=== PATIENT | male | born 1965 | race Caucasian/White ===

== ENCOUNTER 2017-08-23 11:34 | Day surgery (SDC) | payer BC ==
[~2017-08-23 11:34] MED LIST: Lactated Ringers 1,000 ML IV SCH
--- NOTE | 2017-08-23 12:30 | PCM.PREANE ---
Preanesthetic Assessment - Procedure Proposed Procedure: EGD/Colonoscopy - Anesthesia/Transfusion/Family Hx Anesthesia History: Prior Anesthesia Reaction Other Type of Anesthesia Reaction Comment: vaso-vagal, had bradycardia with last colonoscopy Family History of Anesthesia Reaction: No Transfusion History: No Prior Transfusion(s) Intubation History: Unknown - Review of Systems General: No Symptoms Pulmonary: Other (former smoker) Cardiovascular: No Symptoms Neurological: Other (recurrent neck pain) Other: Reports: Depression - Physical Assessment NPO Status Date: 08/22/17 NPO Status Time: 22:00 O2 Sat by Pulse Oximetry: 95 Respiratory Rate: 16 Vital Signs: Last Vital Signs Temp 99.0 F 08/23/17 11:45 Pulse 86 08/23/17 11:45 Resp 16 08/23/17 11:45 BP 119/82 08/23/17 11:45 Pulse Ox 95 08/23/17 11:45 Height: 5 ft 10 in Weight: 197 lb ASA Class: 2 Mental Status: Alert & Oriented x3 Airway Class: Mallampati = 1 Dentition: Reports: Normal Dentition Thyro-Mental Finger Breadths: 3 Mouth Opening Finger Breadths: 3 ROM/Head Extension: Limited/Partial Lungs: Clear to Auscultation, Normal Respiratory Effort Cardiovascular: Regular Rate, Regular Rhythm, No Murmurs - Allergies Allergies/Adverse Reactions: Allergies Allergy/AdvReac Type Severity Reaction Status Date / Time No Known Allergies Allergy Verified 08/21/17 11:11 - Blood Blood Available: No Product(s) Available: None - Anesthesia Plan Pre-Op Medication Ordered: None - Acknowledgements Anesthesia Type Planned: MAC Pt an Appropriate Candidate for the Planned Anesthesia: Yes Alternatives and Risks of Anesthesia Discussed w Pt/Guardian: Yes Pt/Guardian Understands and Agrees with Anesthesia Plan: Yes PreAnesthesia Questionnaire HEENT History: Reports: Hard of Hearing Other HEENT History: wears glasses Musculoskeletal History: Reports: Back Pain, Chronic, Fracture, Neck Pain, Chronic Other Musculoskeletal History: hx of fx ribs, sternum and hand Psychiatric History: Reports: Depression - Past Surgical History GI Surgical History: Reports: Colonoscopy Musculoskeletal Surgical History: Reports: ORIF Other Musculoskeletal Surgeries/Procedures:: Hx of ORIF of hand- hardware removed - SUBSTANCE USE Smoking Status *Q: Former Smoker Recreational Drug Use History: No - HOME MEDS Home Medications: Home Meds Cyclobenzaprine HCl 10 mg PO BEDTIME PRN 08/21/17 [History] Diclofenac Sodium [Voltaren] 75 mg PO BID PRN 08/21/17 [History] FLUoxetine [PROzac] 20 mg PO DAILY 08/21/17 [History] buPROPion HCl [Wellbutrin Xl] 150 mg PO DAILY 08/21/17 [History] - CURRENT (IN HOUSE) MEDS Current Meds: Current Medications Lactated Ringer's (Ringers, Lactated) 1,000 mls @ 125 mls/hr IV ASDIRECTED MAMIE
[2017-08-23] MEDS ORDERED: Lidocaine 2% 5 ML SDV ONE (13:16)
[2017-08-23] MEDS ORDERED: Propofol 200 MG/20 ML SDV ONE (13:16)
[2017-08-23] MEDS ORDERED: Midazolam 1 MG/ML 2 ML SDV ONE (13:17)
[2017-08-23] MEDS ORDERED: fentaNYL 100 MCG/2 ML SDV ONE (13:17)
--- NOTE | 2017-08-23 14:53 | PCM.OPNOTE ---
- General Post-Op/Procedure Note Date of Surgery/Procedure: 08/23/17 Operative Procedure(s): egd w bx. colonoscopy w bx Findings: see dict [id number] Pre Op Diagnosis: hx of colon polyp and gerd Post-Op Diagnosis: Same Anesthesia Technique: Moderate Sedation Primary Surgeon: Herb Zarate Pathology: egd bx 2 mm sessile polyp X 2, cold bx at icv Complications: None Condition: Good
--- NOTE | 2017-08-23 15:10 | PCM.POSTAN ---
POST ANESTHESIA ASSESSMENT - MENTAL STATUS Mental Status: Alert, Oriented - RESPIRATORY Respiratory Status: Respiratory Rate WNL, Airway Patent, O2 Saturation Stable - CARDIOVASCULAR CV Status: Pulse Rate WNL, Blood Pressure Stable - GASTROINTESTINAL GI Status: No Symptoms - POST OP HYDRATION Hydration Status: Adequate & Stable
--- NOTE | 2017-08-23 17:10 | PCM48HPAN ---
Post Anesthesia Note - EVALUATION WITHIN 48HRS OF ANESTHETIC Vital Signs in Normal Range: Yes Patient Participated in Evaluation: Yes Respiratory Function Stable: Yes Airway Patent: Yes Cardiovascular Function Stable: Yes Hydration Status Stable: Yes Pain Control Satisfactory: Yes Nausea and Vomiting Control Satisfactory: Yes Mental Status Recovered: Yes
--- NOTE | 2017-08-23 18:35 | OR ---
SURGEON: Herb Zarate MD DATE OF PROCEDURE: 08/23/2017 PREOPERATIVE DIAGNOSIS: Surveillance colonoscopy and acid reflux. POSTOPERATIVE DIAGNOSIS: Surveillance colonoscopy and acid reflux. PROCEDURE PERFORMED: 1. Esophagogastroduodenoscopy with biopsy. 2. Colonoscopy with biopsy. DESCRIPTION OF PROCEDURE: EGD: The patient was taken to the endoscopy room, and with the CNC MILLING MACHINIST, Diprivan was administered. A well-lubricated EGD scope was gently inserted through the oropharynx, down the esophagus, passing through the gastroesophageal junction, into the stomach. The mucosa was examined upon the passage. Any etiology will be noted. Once in the stomach, we continued to advance to the distal antrum, passed through the pylorus into the second portion of the duodenum. Again, the mucosa was examined for any abnormality and etiology. The scope was then retrieved back to the stomach and then retroflexed to look at the fundus of the stomach. If a biopsy was indicated, we will biopsy the antrum, body, and gastroesophageal junction. The air will be sucked out while the scope is retrieved to reduce the patient's discomfort. The patient tolerated the procedure well. There were no intraoperative complications. Dr. Zarate was present through the whole procedure. Prior to surgery, a time-out had been called, the patient identified, procedure identified and antibiotic administered. Colonoscopy with biopsy: The patient was taken to the endoscopy room. A time out was called, patient identified, and procedure identified. Diprivan was then administrated. Patient went from awake to sleep, hearing doctor talking or door closing is normal. Perineum inspection and digital examination were then performed. A well-lubricated colonoscope was gently inserted through the rectum, advanced past the rectosigmoid junction, the descending colon, splenic flexure, transverse colon, hepatic flexure, ascending colon, arrived to the cecum. Cecum was identified as dictated in the finding. Then the scope was carefully withdrawn while attention was paid to the mucosal surface for any abnormality. Air will be sucked out during the scope withdrawal. At the rectum, retroflexed to examine any rectal diseases, fistula or hemorrhoids. During mucosal examination, abnormality or polyp was noted; picture taken and biopsy performed. Patient tolerated procedure well. There were no intraoperative complications, and Dr. Zarate was present throughout the whole procedure. EGD FINDINGS: 1. The patient was easily sedated with CNC MILLING MACHINIST and Diprivan. The patient was soundly snoring. 2. Oropharynx and proximal esophagus were free of disease and normal in appearance and distal esophagus, GE junction at 40 showed significant amount of salmon-color change consistent with acid reflux and stomach rugae is normal in appearance. There is no bile, food, blood, or AV malformation or ulcer observed. Antrum is mildly inflamed and duodenum is grossly normal in appearance. Scope was retrieved back to the stomach to look at the fundus of stomach, the patient had mild degree hiatal hernia. Again, no blood or ulcer observed on further study. Biopsy done at antrum, GE junction at 40, and body and sucked out the air while scope pulling out. COLONOSCOPY FINDINGS: 1. The patient was easily sedated with CNC MILLING MACHINIST and Diprivan. The patient was soundly snoring. 2. At this time, the patient does not seem to have any vasovagal response like last time. 3. Bowel prep is left to be desirable, large amount of opaque liquid stool coating the mucosa requiring constant irrigation and the stool is also opaque too. No semi-formed stool. The patient's cecum was indicated by ileocecal fold, one-to-one indentation, and light mittens and appendiceal orifice. The mucosa examined upon scope pulling out with constant irrigation and again is a compromised study because of the bowel prep. The patient had 2 tiny 2 mm sessile polyps at the ileocecal fold and were removed with biopsy forceps. On continued examination. The patient had mild diverticulosis at the left colon. No signs or symptoms of diverticulitis. No inflammation, stricture, ulceration, bleeding, AV malformation or mass or growth observed. The patient had mild external hemorrhoid and mild internal hemorrhoids. The patient would benefit from repeat colonoscopy in 3 years from today or if clinically indicated, otherwise, if the pathology indicated. ROGELIO / ARELY /[id number]
== END 2017-08-23 15:30 | disposition home or self-care (01) ==
LOC: MW.SDS 11:34
PROVIDERS: ATTEND Surgery
DX: Z12.11 Encounter for screening for malignant neoplasm of colon (principal); K29.50 Unspecified chronic gastritis without bleeding; D12.0 Benign neoplasm of cecum; K64.4 Residual hemorrhoidal skin tags; K64.8 Other hemorrhoids; K44.9 Diaphragmatic hernia without obstruction or gangrene; K21.9 Gastro-esophageal reflux disease without esophagitis; F32.9 Major depressive disorder, single episode, unspecified; G89.29 Other chronic pain; M54.2 Cervicalgia; Z79.899 Other long term (current) drug therapy; Z80.0 Family history of malignant neoplasm of digestive organs; Z87.891 Personal history of nicotine dependence; Z98.890 Other specified postprocedural states
CPT/HCPCS: 43239; 45380; 88305; 88312; J2250; J3010; J2704

== ENCOUNTER 2020-10-20 07:07 | Day surgery (SDC) | payer BC ==
--- NOTE | 2020-10-20 08:37 | PCM.PREANE ---
Preanesthetic Assessment - Anesthesia/Transfusion/Family Hx Anesthesia History: Prior Anesthesia Without Reaction Other Type of Anesthesia Reaction Comment: vaso-vagal, had bradycardia with last colonoscopy Family History of Anesthesia Reaction: No Transfusion History: No Prior Transfusion(s) Intubation History: Unknown - Review of Systems General: No Symptoms Pulmonary: No Symptoms Cardiovascular: No Symptoms Gastrointestinal: No Symptoms Neurological: No Symptoms Other: Reports: None - Physical Assessment NPO Status Date: 10/19/20 Height: 5 ft 10 in Weight: 85.729 kg ASA Class: 1 Mental Status: Alert & Oriented x3 Airway Class: Mallampati = 2 Dentition: Reports: Normal Dentition ROM/Head Extension: Full Lungs: Clear to Auscultation, Normal Respiratory Effort Cardiovascular: Regular Rate, Regular Rhythm - Lab Values: Laboratory Last Values SARS-CoV-2 RNA (SUKI) NEGATIVE (NEGATIVE) 10/20/20 07:20 - Allergies Allergies/Adverse Reactions: Allergies Allergy/AdvReac Type Severity Reaction Status Date / Time No Known Allergies Allergy Verified 10/07/20 07:45 - Blood Blood Available: No - Anesthesia Plan Pre-Op Medication Ordered: None - Acknowledgements Anesthesia Type Planned: General Anesthesia (tiva) Pt an Appropriate Candidate for the Planned Anesthesia: Yes Alternatives and Risks of Anesthesia Discussed w Pt/Guardian: Yes Pt/Guardian Understands and Agrees with Anesthesia Plan: Yes Additional Comments: PMH: none PreAnesthesia Questionnaire HEENT History: Reports: Impaired Vision Other HEENT History: wears glasses Cardiovascular History: Reports: None Respiratory History: Reports: None Gastrointestinal History: Reports: Colon Polyp, Helicobacter Pylori Other Gastrointestinal History: occasional heartburn Genitourinary History: Reports: None Musculoskeletal History: Reports: Fracture Other Musculoskeletal History: hx of fx ribs, sternum and hand Neurological History: Reports: None Psychiatric History: Reports: Depression Endocrine/Metabolic History: Reports: None Hematologic History: Reports: None Immunologic History: Reports: None Oncologic (Cancer) History: Reports: None Dermatologic History: Reports: None - Past Surgical History Head Surgeries/Procedures: Reports: None HEENT Surgical History: Reports: None Cardiovascular Surgical History: Reports: None Respiratory Surgical History: Reports: None GI Surgical History: Reports: Colonoscopy Male Surgical History: Reports: None Endocrine Surgical History: Reports: None Neurological Surgical History: Reports: None Musculoskeletal Surgical History: Reports: Arthroscopic Knee, ORIF Other Musculoskeletal Surgeries/Procedures:: Hx of ORIF of hand- hardware removed Oncologic Surgical History: Reports: None Dermatological Surgical History: Reports: None - SUBSTANCE USE Tobacco Use Status *Q: Former Tobacco User Tobacco Use Within Last Twelve Months: No - HOME MEDS Home Medications: Home Meds Cyclobenzaprine HCl 10 mg PO BEDTIME PRN 08/21/17 [History] Diclofenac Sodium [Voltaren] 75 mg PO BID PRN 08/21/17 [History] FLUoxetine [PROzac] 20 mg PO DAILY 08/21/17 [History] Esomeprazole [NexIUM] 20 mg PO DAILY PRN 08/18/20 [History] - CURRENT (IN HOUSE) MEDS Current Meds: Current Medications Lactated Ringer's (Ringers, Lactated) 1,000 mls @ 125 mls/hr IV ASDIRECTED MAMIE
[2020-10-20] MEDS ORDERED: Propofol 200 MG/20 ML SDV ONE (09:02)
[2020-10-20] MEDS ORDERED: Lidocaine 2% 5 ML SDV ONE (09:45)
--- NOTE | 2020-10-20 10:13 | PCM.OPNOTE ---
- General Post-Op/Procedure Note Date of Surgery/Procedure: 10/20/20 Operative Procedure(s): egd w bx. colonoscopy w bx Findings: see [id number] Pre Op Diagnosis: positive fam hx and hpylori infection hx Post-Op Diagnosis: Same Anesthesia Technique: Moderate Sedation Primary Surgeon: Herb Zarate Pathology: egd bx and colon bx at distance 100cm when coming out and 3mm sessile polyp at 70cm when coming out Complications: None Condition: Good
--- NOTE | 2020-10-20 12:36 | OR ---
SURGEON: Herb Zarate MD DATE OF PROCEDURE: 10/20/2020 PREOPERATIVE DIAGNOSES: Positive family history and Helicobacter pylori infection history. PROCEDURES PERFORMED: Esophagogastroduodenoscopy with biopsy and colonoscopy with biopsy. DESCRIPTION OF PROCEDURE: EGD: The patient was taken to the endoscopy room, and with the GRAPHIC DESIGN PROFESSOR, Diprivan was administered. A well-lubricated EGD scope was gently inserted through the oropharynx, down the esophagus, passing through the gastroesophageal junction, into the stomach. The mucosa was examined upon the passage. Any etiology will be noted. Once in the stomach, we continued to advance to the distal antrum, passed through the pylorus into the second portion of the duodenum. Again, the mucosa was examined for any abnormality and etiology. The scope was then retrieved back to the stomach and then retroflexed to look at the fundus of the stomach. If a biopsy was indicated, we will biopsy the antrum, body, and gastroesophageal junction. The air will be sucked out while the scope is retrieved to reduce the patient's discomfort. The patient tolerated the procedure well. There were no intraoperative complications. Dr. Zarate was present through the whole procedure. Prior to surgery, a time-out had been called, the patient identified, procedure identified and antibiotic administered. The patient was taken to the endoscopy room. A time out was called, patient identified, and procedure identified. Diprivan was then administrated. Patient went from awake to sleep, hearing doctor talking or door closing is normal. Perineum inspection and digital examination were then performed. A well- lubricated colonoscope was gently inserted through the rectum, advanced past the rectosigmoid junction, the descending colon, splenic flexure, transverse colon, hepatic flexure, ascending colon, arrived to the cecum. Cecum was identified as dictated in the finding. Then the scope was carefully withdrawn while attention was paid to the mucosal surface for any abnormality. Air will be sucked out during the scope withdrawal. At the rectum, retroflexed to examine any rectal diseases, fistula or hemorrhoids. During mucosal examination, abnormality or polyp was noted; picture taken and biopsy performed. Patient tolerated procedure well. There were no intraoperative complications, and Dr. Zarate was present throughout the whole procedure. FINDINGS: EGD findings: 1. The patient is easily sedated with GRAPHIC DESIGN PROFESSOR and Diprivan, the patient is soundly snoring. 2. Oropharynx and proximal esophagus are free of disease, stricture, inflammation, none of those. Distal esophagus at GE junction at 40 shows large amount of salmon-colored change, consistent with acid reflux, but they are not inflamed, just change to the mucosa appearance. Compared to previous, it is not that inflamed. Stomach rugae are normal in appearance. Antrum is mildly inflamed. At three areas looked like it is petechial hemorrhaging, but it is not really bleeding. Duodenum is grossly normal. Retroflexed look at the fundus of stomach, the patient has a small hiatal hernia. Biopsy done at antrum two times because of petechiae, concern about real ulcer. It is not lazaro bleeding. Biopsy done at antrum, biopsy done at body, biopsy done at GE junction at 40, and sucked out the gas while scope pulling out. During the whole study, there is no blood, there is no lazaro ulcer, no food, no bile. Colonoscopy findings: 1. The patient is easily sedated with GRAPHIC DESIGN PROFESSOR and Diprivan, the patient is soundly snoring. 2. Bowel prep is average with a large amount of liquid stool, no semi-formed stool, no stool ball. 3. Colon rather straightforward. Cecum indicated by the ileocecal fold, one- to-one indentation, and appendiceal orifice. ScopeGuide is pointing south. Mucosa examined upon scope pulling out with some irrigation. The patient has one tiny polyp, like 1 mm, at distance 100 cm when scope pulling out. Another one is more like a fold than a polyp. Anyway, we biopsy removed it. It is about 3 mm sessile polyp, removed with cold biopsy forceps. The patient has mild diverticulosis in the left colon. No signs or symptoms of diverticulitis. The patient has minimal external hemorrhoids, more or less like a skin tag, and some mild internal hemorrhoids. The patient would benefit from repeat colonoscopy in 3 years from today because of a positive family history or if clinically or the pathology of the biopsy turns out different. ROGELIO / ARELY /[id number]
--- NOTE | 2020-10-20 13:42 | PCM48HPAN ---
Post Anesthesia Note - EVALUATION WITHIN 48HRS OF ANESTHETIC Vital Signs in Normal Range: Yes Patient Participated in Evaluation: Yes Respiratory Function Stable: Yes Airway Patent: Yes Cardiovascular Function Stable: Yes Hydration Status Stable: Yes Pain Control Satisfactory: Yes Nausea and Vomiting Control Satisfactory: Yes Mental Status Recovered: Yes Vital Signs: Last Vital Signs Temp 97.2 F 10/20/20 10:25 Pulse 74 10/20/20 10:25 Resp 16 10/20/20 10:25 BP 112/77 10/20/20 10:25 Pulse Ox 97 10/20/20 10:25
--- NOTE | 2020-10-20 13:42 | PCM.POSTAN ---
POST ANESTHESIA ASSESSMENT - MENTAL STATUS Mental Status: Alert, Oriented - VITAL SIGNS Vital Signs: Last Vital Signs Temp 97.2 F 10/20/20 10:25 Pulse 74 10/20/20 10:25 Resp 16 10/20/20 10:25 BP 112/77 10/20/20 10:25 Pulse Ox 97 10/20/20 10:25 - RESPIRATORY Respiratory Status: Respiratory Rate WNL, Airway Patent, O2 Saturation Stable - CARDIOVASCULAR CV Status: Pulse Rate WNL, Blood Pressure Stable - GASTROINTESTINAL GI Status: No Symptoms - POST OP HYDRATION Hydration Status: Adequate & Stable
== END 2020-10-20 10:48 | disposition home or self-care (01) ==
LOC: MW.SDS 07:07
PROVIDERS: ATTEND Surgery
DX: Z12.11 Encounter for screening for malignant neoplasm of colon (principal); K29.50 Unspecified chronic gastritis without bleeding; K22.8 Other specified diseases of esophagus; K57.30 Diverticulosis of large intestine without perforation or abscess without bleeding; K64.4 Residual hemorrhoidal skin tags; K64.8 Other hemorrhoids; K63.5 Polyp of colon; D36.10 Benign neoplasm of peripheral nerves and autonomic nervous system, unspecified; Z01.812 Encounter for preprocedural laboratory examination; Z20.822 Contact with and (suspected) exposure to COVID-19; Z86.19 Personal history of other infectious and parasitic diseases; Z87.891 Personal history of nicotine dependence; Z80.0 Family history of malignant neoplasm of digestive organs; Z79.899 Other long term (current) drug therapy
CPT/HCPCS: 43239; 45380; 87635; J2704; J7120; 00813; 88305; 88312; U0002